=== PATIENT | male | born 1960 | race Caucasian/White ===

== ENCOUNTER → 2016-12-24 | Outpatient (CLI) | payer OTHER ==
--- NOTE | 2016-12-24 10:27 | CARD ---
APPROVED REPORT EXAM: Two-dimensional and M-mode echocardiogram with Doppler and color Doppler. Other Information Quality : GoodHR: 62bpm Rhythm : NSR INDICATION Bicuspid aortic valve RISK FACTORS Hyperlipidemia 2D DIMENSIONS RVDd3.5 (2.9-3.5cm)Left Atrium(2D)3.0 (1.6-4.0cm) IVSd1.1 (0.7-1.1cm)Aortic Root(2D)3.7 (2.0-3.7cm) LVDd4.9 (3.9-5.9cm)LVOT Diameter2.4 (1.8-2.4cm) PWd1.1 (0.7-1.1cm)LVDs2.8 (2.5-4.0cm) FS (%) 42.8 %SV82.5 ml LVEF(%)73.8 (>50%) Aortic Valve AoV Peak Irwin.192.2cm/sAoV VTI40.9cm AO Peak GR.14.8mmHgLVOT Peak Irwin.123.7cm/s AO Mean GR.7mmHgAVA (VMAX)2.91cm2 AI P 1/2 [id number] Mitral Valve MV E Sttyrqqd36.6cm/sMV E Peak Gr.3mmHg MV DECEL [id number] A Qfpnuokf78.5cm/s MV E Mean Gr.1mmHgE/A Ratio1.6 MV A [id number] Pulmonary Valve PV Peak Rxnegcvo48.5cm/s Tricuspid Valve TR P. Yxubjxaf141sp/sTR Peak Gr.24mmHg Pulmonary Vein S1 Dhvtcyiu00.7cm/sD2 Qiedryqs18.0cm/s PVa [id number] LEFT VENTRICLE The left ventricle is normal size. There is borderline concentric left ventricular hypertrophy. The l eft ventricular systolic function is normal and the ejection fraction is within normal range. The Eje ction Fraction is 65%. There is normal LV segmental wall motion. The left ventricular diastolic funct ion and filling is normal for age. RIGHT VENTRICLE The right ventricle is normal size. There is normal right ventricular wall thickness. The right ventr icular systolic function is normal. ATRIA The left atrium size is normal. The right atrium size is normal. The interatrial septum is intact wit h no evidence for an atrial septal defect or patent foramen ovale as noted on 2-D or Doppler imaging. AORTIC VALVE The aortic valve is mildly thickened. The aortic valve is trileaflet with partial fusion of the right and left cusps. No clear bicuspid valve appearance noted. Doppler and Color Flow revealed mild aorti c regurgitation. There is no significant aortic valvular stenosis. MITRAL VALVE The mitral valve leaflets are mildfly thickened. There is no evidence of mitral valve prolapse. There is no mitral valve stenosis. Doppler and Color Flow revealed mild mitral regurgitation. TRICUSPID VALVE Doppler and Color Flow revealed trace tricuspid regurgitation. The pulmonary artery systolic pressure is estimated at 27 mmHg. There is no pulmonary hypertension. PULMONIC VALVE The pulmonary valve is not well visualized but appears to opens well. Doppler and Color Flow revealed no pulmonic valvular regurgitation. There is no pulmonic valvular stenosis by spectral Doppler. GREAT VESSELS The aortic root is mildly enlarged. The ascending aorta is mildly dilated at 4.1 cm. The pulmonary ar jazlyn is normal. The IVC is normal in size and collapses >50% with inspiration. PERICARDIAL EFFUSION There is no evidence of significant pericardial effusion. Critical Notification Critical Value: No <Conclusion> The left ventricular systolic function is normal and the ejection fraction is within normal range. Th e Ejection Fraction is 65%. There is normal LV segmental wall motion. The aortic valve is mildly thickened. The aortic valve is trileaflet with partial fusion of the right and left cusps. No clear bicuspid valve appearance noted. The ascending aorta is mildly dilated at 4.1 cm.
== END | disposition home or self-care (01) ==
LOC: ECHO 08:32
PROVIDERS: ATTEND Internal Medicine Cardiovascular Disease
DX: I08.3 Combined rheumatic disorders of mitral, aortic and tricuspid valves (principal)
CPT/HCPCS: 93306